=== PATIENT | male | born 1990 | race Two or more races ===

== ENCOUNTER 2023-02-05 17:32 | Emergency (ER) | payer BC, OTHER ==
[~2023-02-05] VITALS: Ht 167.6 cm; Wt 96.9 kg
[2023-02-05] MEDS ORDERED: TETANUS-DIPTH-ACEL PERTUSSIS 0.5ML SYR Tdap IM ONE (22:30)
[2023-02-05] MEDS ORDERED: LIDOCAINE 1% HCL (LOCAL ANESTH.) INJ 20ML MDV IJ ONE (22:30)
[2023-02-06] MEDS ORDERED: IBUP-1454 PO (00:09)
[2023-02-06] MEDS ORDERED: CEPH500C PO (00:09)
[2023-02-06 00:10] VITALS: BP 138/78; PULSE 78; RESP 18; TEMP 98; O2SAT 97
== END 2023-02-06 00:19 | disposition home or self-care (01) ==
LOC: ER 17:32
DX: S61.412A Laceration without foreign body of left hand, initial encounter (principal); W26.8XXA Contact with other sharp object(s), not elsewhere classified, initial encounter; Y93.89 Activity, other specified; Y92.89 Other specified places as the place of occurrence of the external cause; Y99.8 Other external cause status
CPT/HCPCS: 12002; 90471; 90715; 99283; J2001